=== PATIENT | male | born 1995 | race African-American/Black ===

== ENCOUNTER 2024-02-14 13:01 | Emergency (ER) | payer OTHER ==
[2024-02-14 13:06] VITALS: BP 146/84; PULSE 97; RESP 20; TEMP 98.6; BMI 40.4
[2024-02-14] MEDS ORDERED: DIPHTH,PERTUSS(ACELL),TET 0.5 ML DISP.SYRIN IM ONE (14:43)
[2024-02-14] MEDS: DIPHTH,PERTUSS(ACELL),TET 0.5 ML DISP.SYRIN IM ONE (14:46)
== END 2024-02-14 14:56 | disposition home or self-care (01) ==
LOC: JERFT 13:01
PROC: 0CQ0XZZ Repair Upper Lip, External Approach (ICD-10-PCS; principal; 2024-02-14)
PROC: 3E0234Z Introduction of Serum, Toxoid and Vaccine into Muscle, Percutaneous Approach (ICD-10-PCS; 2024-02-14)
DX: S01.511A Laceration without foreign body of lip, initial encounter (principal); W10.8XXA Fall (on) (from) other stairs and steps, initial encounter; Z23 Encounter for immunization
CPT/HCPCS: 12011-25; 90471; 90715; 99284-25